=== PATIENT | female | born 1970 | race African-American/Black ===

== ENCOUNTER 2018-09-04 19:45 | Emergency (ER) | payer MEDICAID ==
[~2018-09-04] VITALS: Ht 167.6 cm; Wt 100.0 kg
[2018-09-04 20:08] VITALS: BP 143/88
== END 2018-09-04 23:32 | disposition left against medical advice (07) ==
LOC: ER 19:45
DX: R45.851 Suicidal ideations (principal); Z53.21 Procedure and treatment not carried out due to patient leaving prior to being seen by health care provider
CPT/HCPCS: 81025